=== PATIENT | male | born 2000 | race Two or more races ===

== ENCOUNTER 2020-12-24 17:25 | Emergency (ER) | payer OTHER ==
[~2020-12-24] VITALS: Ht 195.6 cm; Wt 176.0 kg
[2020-12-24 18:00] VITALS: BP 149/66
[2020-12-24] MEDS ORDERED: LIDOCAINE WITH 8.4% SOD BICARB 3 ML DISP.SYRIN. INJ ONE (18:30)
[2020-12-24] MEDS ORDERED: DIPH,PERTUSS(ACELL),TET VAC/PF 0.5 ML SYRINGE. VAX IM ONE (18:45)
--- NOTE | 2020-12-24 19:52 | PHYS DOC ---
Past Medical History Past Medical History: No Pertinent History (GRACE LYLE LABOR ECONOMICS TEACHER) Past Surgical History: No Surgical History (GRACE LYLE APRN) Smoking Status: Never Smoker Alcohol Use: None (GRACE LYLE APRN) General Adult EDM: Chief Complaint: FOREIGN BODY HPI: HPI: Patient is a 20 year old male patient who presents to the ED today complaining of a fishhook in the left thumb that occurred today. (GRACE LYLE APRN) Review of Systems: Review of Systems: Constitutional: Denies fever or chills. [] Musculoskeletal: Denies back pain or joint pain. [] Integument: Reports fishhook to the left thumb Neurologic: Denies headache, focal weakness or sensory changes. [] Psychiatric: Denies depression or anxiety. [] (GRACE LYLE APRN) Heart Score: C/O Chest Pain: N/A Risk Factors: Risk Factors: DM, Current or recent (<one month) smoker, HTN, HLP, family history of CAD, obesity. Risk Scores: Score 0 - 3: 2.5% MACE over next 6 weeks - Discharge Home Score 4 - 6: 20.3% MACE over next 6 weeks - Admit for Clinical Observation Score 7 - 10: 72.7% MACE over next 6 weeks - Early Invasive Strategies (GRACE LYLE APRN) Current Medications: Current Medications Medications (Trade) Dose Ordered Sig/Courtney Start Time Stop Time Status Last Admin Dose Admin Diphtheria/ Tetanus/Acell Pertussis (ADACEL TDap SYRINGE) 0.5 ml ONCE ONCE 12/24/20 18:45 12/24/20 18:46 DC Lidocaine HCl (Buffered Lidocaine 1%) 3 ml 1X ONCE 12/24/20 18:30 12/24/20 18:33 DC (GRACE LYLE LABOR ECONOMICS TEACHER) Allergies: Allergies: Allergies Coded Allergies Type Severity Reaction Last Updated Verified No Known Drug Allergies 12/24/20 No (GRACE LYLE APRN) Physical Exam: PE: Constitutional: Well developed, well nourished, no acute distress, non-toxic appearance. [] Skin: Left mid ventral phalanx with a fishhook. Range of motion is intact to the left thumb. Adequate radial sensation to the left thumb. +2 left radial pulse. Cap refill less than 2 seconds in left thumb Back: No tenderness, no CVA tenderness. [] Extremities: No tenderness, no cyanosis, no clubbing, ROM intact, no edema. [] Neurologic: Alert and oriented X 3, normal motor function, normal sensory function, no focal deficits noted. [] Psychologic: Affect normal, judgement normal, mood normal. [] (GRACE LYLE LABOR ECONOMICS TEACHER) Current Patient Data: Vital Signs: Vital Signs Date Time Temp Pulse Resp B/P (MAP) Pulse Ox O2 Delivery O2 Flow Rate FiO2 12/24/20 18:00 99.5 71 16 149/66 (93) 100 Room Air 99.5 (GRACE LYLE LABOR ECONOMICS TEACHER) EKG: EKG: [] (GRACE LYLE APRN) Radiology/Procedures: Radiology/Procedures: Indication: [place] to the left thumb Procedure: The area of the foreign body was left thumb. Local anesthesia over the foreign body site was 1% of buffered lidocaine, 3 mL was used. The fishhook was threaded through the skin unsuccessfully removed. After the procedure dressing was applied to the finger. The patient's tetanus status was updated The patient tolerated the procedure well Complications: None (GRACE LYLE LABOR ECONOMICS TEACHER) Course & Med Decision Making: Course & Med Decision Making Pertinent Labs and Imaging studies reviewed. (See chart for details) This is a 20-year-old male patient with fishhook to the left thumb that was removed successfully by me. Tetanus updated. Discharged home. Wound care instructions return precautions provided (GRACE LYLE LABOR ECONOMICS TEACHER) Dragon Disclaimer: Dragon Disclaimer: This electronic medical record was generated, in whole or in part, using a voice recognition dictation system. (GRACE LYLE LABOR ECONOMICS TEACHER) Departure Departure Impression: Primary Impression: Fish hook injury of finger of left hand Qualified Codes: S69.92XA - Unspecified injury of left wrist, hand and finger(s), initial encounter Disposition: 01 HOME / SELF CARE / HOMELESS Condition: STABLE Referrals: NO PCP (PCP) Follow-up with your doctor as needed Patient Instructions: Fish Hook Removal Additional Instructions: You had a fishhook removed from the left thumb. Keep the area clean and dry. You can remove the dressing from the finger tomorrow and wash the area with normal soap and water. Keep the area open to air starting tomorrow. Please apply Neosporin to the area twice a day, monitor the area for any signs of infection including but not limited to increased redness, warmth, yellow drainage from the area and return to the ED. Attending Signature Attending Signature I have reviewed the PA/RAYMOND MILL OPERATOR's note and plan of care. I was available for consultation as needed during the patient's visit in the emergency department. I agree with the clinical impression, plan, and disposition. (PAM WOOD DO) GRACE LYLE APRN Dec 24, 2020 19:52 PAM WOOD DO Dec 25, 2020 00:51
== END 2020-12-24 20:00 | disposition home or self-care (01) ==
LOC: ER 17:25
DX: S69.92XA Unspecified injury of left wrist, hand and finger(s), initial encounter (principal); X58.XXXA Exposure to other specified factors, initial encounter; Y93.89 Activity, other specified; Y92.89 Other specified places as the place of occurrence of the external cause; Y99.8 Other external cause status
CPT/HCPCS: 90471; 90715; 99284; J3490